=== PATIENT | female | born 1960 | race Caucasian/White ===

== ENCOUNTER 2018-07-06 01:06 | Observation (INO) | payer BC ==
[2018-07-06] MEDS ORDERED: 0.9 % SODIUM CHLORIDE 1000ML 1,000 ML IV SCH (01:30)
[2018-07-06] MEDS ORDERED: ONDANSETRON HCL IV 4 MG/2 ML VIAL IVP ONE (01:31)
[2018-07-06] MEDS ORDERED: HYDROMORPHONE HCL 2 MG/ML VIAL IVP ONE ×2 (01:31→02:22)
[2018-07-06 01:33] LABS: HEMATOCRIT 37.4 % (35.0-47.0); HEMOGLOBIN 12.2 gm/dl (11.6-16.0); MEAN CELL VOLUME 85.6 fl (81-97); MEAN CORPUSCULAR HEMOGLOBIN 27.9 pg (27-33); MEAN CORPUSCULAR HGB CONC 32.6 g/dl (32-36); PLATELET COUNT 284 K/uL (130-400); RED BLOOD COUNT 4.37 M/uL (3.80-5.40); WHITE BLOOD COUNT W/O DIFF 7.3 K/uL (4.2-12.2)
--- NOTE | 2018-07-06 01:37 | Emergency Department Record ---
History of Present Illness - General Chief Complaint: Abdominal Pain Stated Complaint: LEFT SIDE ABD PAIN Time Seen by Provider: 07/06/18 01:08 Source: Patient Mode of Arrival: Ambulatory Limitations: No limitations - History of Present Illness Initial Comments: 58 yo female presents to ED for evaluation of LLQ abdominal pain that began approximately 20 hours ago. Patient reports undergoing EGD/Colonoscopy 36 hours ago. Patient denies nausea, vomiting, or change in stools. Patient denies fevers, chills, or recent illness. Patient denies health problems other than DM. MD Complaint: Abdominal pain Onset/Timin -: Hour(s) Location: LUQ, LLQ Migration to: No migration Severity: Severe Severity scale (1-10): 8 Quality: Sharp, Stabbing Consistency: Constant Improves With: Nothing Worsens With: Movement Associated Symptoms: Denies other symptoms - Related Data Patient : No Home Medications Medication Instructions Recorded Confirmed Last Taken Acetaminop W/ Codeine 300/30Mg 2 tab PO QHS 07/06/18 07/06/18 07/05/18 [Tylenol #3] Aspirin 81 mg PO DAILY 07/06/18 07/06/18 Unknown Atorvastatin Calcium [Lipitor] 20 mg PO QPM 07/06/18 07/06/18 Unknown Brimonidine Tartrate [Alphagan P] 1 drop OPTH TID 07/06/18 07/06/18 Unknown Cholecalciferol (Vitamin D3) 2,000 unit PO DAILY 07/06/18 07/06/18 Unknown [Vitamin D3] Dicyclomine HCl 10 mg PO BID 07/06/18 07/06/18 Unknown Insulin Aspart [Novolog Flexpen] 1 unit SQ ASDIR PRN 07/06/18 07/06/18 Unknown Insulin Degludec [Tresiba 42 units SQ DAILY 07/06/18 07/06/18 Unknown Flextouch U-200] Latanoprost 0.005% Opth Elena 1 drop OPTH QHS 07/06/18 07/06/18 Unknown [Xalatan] Latanoprost 0.005% Opth Elena 1 drop OPTH QHS 07/06/18 07/06/18 Unknown [Xalatan] Levothyroxine Sodium [Synthroid] 125 mcg PO DAILY 07/06/18 07/06/18 Unknown Omeprazole [Prilosec] 20 mg PO BID 07/06/18 07/06/18 Unknown Timolol Maleate 0.5% 5Ml Btl 1 drop OPTH DAILY 07/06/18 07/06/18 Unknown [Timoptic] Allergies Allergy/AdvReac Type Severity Reaction Status Date / Time morphine Allergy HIVES Verified 07/06/18 01:13 Penicillins Allergy ITCHING Verified 07/06/18 01:13 Sulfa (Sulfonamide Allergy SWELLING Verified 07/06/18 01:13 Antibiotics) OF THE FACE Review of Systems Constitutional: Denies: Chills, Fever, Malaise, Night sweats Eyes: Denies: Eye discharge, Eye pain ENT: Denies: Congestion, Ear pain, Epistaxis Respiratory: Denies: Cough, Dyspnea Cardiovascular: Denies: Chest pain, Dyspnea on exertion Endocrine: Denies: Fatigue, Heat or cold intolerance Gastrointestinal: Reports: Abdominal pain. Denies: Nausea, Vomiting Genitourinary: Denies: Incontinence, Retention Musculoskeletal: Denies: Arthralgia, Back pain Skin: Denies: Bruising, Change in color Neurological: Denies: Abnormal gait, Confusion, Headache, Seizure Psychiatric: Denies: Anxiety Hematological/Lymphatic: Denies: Anemia, Blood Clots Physical Exam - General General Appearance: Alert, Oriented x3, Cooperative, Moderate distress Limitations: No limitations - Head Head exam: Atraumatic, Normocephalic, Normal inspection Head exam detail: negative: Abrasion, Contusion, Mtz's sign, General tenderness, Hematoma, Laceration - Eye Eye exam: Normal appearance. negative: Conjunctival injection, Periorbital swelling, Periorbital tenderness, Scleral icterus - ENT Ear exam: negative: Auricular hematoma, Auricular trauma Nasal Exam: negative: Active bleeding, Discharge, Dried blood, Foreign body Mouth exam: negative: Drooling, Laceration, Muffled voice, Tongue elevation - Neck Neck exam: Normal inspection. negative: Meningismus, Tenderness - Respiratory Respiratory exam: Normal lung sounds bilaterally. negative: Rales, Respiratory distress, Rhonchi, Stridor - Cardiovascular Cardiovascular Exam: Regular rate, Normal rhythm, Normal heart sounds - GI/Abdominal GI/Abdominal exam: Soft, Tenderness (TTP LUQ>LLQ, no rebound present, guarding is present.). negative: Rebound, Rigid - Rectal Rectal exam: Deferred - exam: Deferred - Extremities Extremities exam: Normal inspection. negative: Calf tenderness, Pedal edema, Tenderness - Back Back exam: Denies: CVA tenderness (R), CVA tenderness (L) - Neurological Neurological exam: Alert, Normal gait, Oriented X3 - Psychiatric Psychiatric exam: Normal affect, Normal mood - Skin Skin exam: Normal color. negative: Abrasion Type of lesion: negative: abrasion Course Vital Signs 07/06/18 01:15 Temperature 98.3 F Pulse Rate [ 82 Pulse Ox Probe] Respiratory 18 Rate Blood Pressure 166/80 [Left Arm] Pulse Ox 100 - Reevaluation(s) Reevaluation #1: 07/06/18 01:54 Laboratory studies were reviewed: WBC 7.3 CO2 20 AG 18 BUN/Creatinine 25/1.1 Labs are otherwise grossly unremarkable for an acute process. Reevaluation #2: 07/06/18 02:23 Patient has returned from CT imaging, reports mild improvement in her pain symptoms. Repeat Dilaudid ordered as well. Reevaluation #3: 07/06/18 03:41 CT Abdomen and Pelvis: No acute process Reevaluation #4: 07/06/18 06:46 Case was discussed with Dr. Cornelius, will accept admission at this time. Medical Decision Making - Lab Data Result diagrams: 07/06/18 01:25 07/06/18 01:25 Disposition Disposition: Admit Clinical Impression: Abdominal pain Qualifiers: Abdominal location: left lower quadrant Qualified Code(s): R10.32 - Left lower quadrant pain Disposition: Still a Patient at [facility] Decision to Admit: Admit from ER Decision to Admit Date: 07/06/18 Decision to Admit Time: 03:45 Condition: (2) Stable Time of Disposition: 03:45 Quality - Quality Measures Quality Measures: N/A - Blood Pressure Screening Does Patient Have Any of the Following: No Blood Pressure Classification: Pre-Hypertensive BP Reading Systolic Measurement: 131 Diastolic Measurement: 72 Screening for High Blood Pressure: < Pre-Hypertensive BP, F/U Documented > [ [id number]] Pre-Hypertensive Follow-up Interventions: Referral to alternative/primary care provider.
[2018-07-06 01:46] LABS: BILIRUBIN,TOTAL 0.2 mg/dL (0.2-1.0); CREATININE 1.1 mg/dL (0.5-0.9)
[2018-07-06 01:52] LABS: ALB/GLOB RATIO 1.4 (1.1-1.8); ALBUMIN 4.1 g/dL (4.0-5.0)
[2018-07-06 02:36] LABS: URINE APPEARANCE CLEAR; URINE BILIRUBIN NEGATIVE (NEGATIVE); URINE BLOOD NEGATIVE (NEGATIVE); URINE COLOR YELLOW; URINE KETONE NEGATIVE (NEGATIVE); URINE LEUKOCYTE ESTERASE SMALL (NEGATIVE); URINE NITRITE NEGATIVE (NEGATIVE); URINE PROTEIN NEGATIVE (NEGATIVE); URINE UROBILINOGEN 0.2 E.U./dL (0.20 - 1.00)
[2018-07-06 02:38] LABS: URINE BACTERIA NONE SEEN; URINE EPITHELIAL CELLS 0 - 2 (FEW); URINE RBC 0 - 2 (NONE SEEN); URINE WBC 0 - 2 (0-2/hpf)
[2018-07-06] MEDS ORDERED: ACETAMINOPHEN 500 MG TABLET PO PRN (04:30)
[2018-07-06] MEDS ORDERED: 0.9 % SODIUM CHLORIDE 1000ML 1,000 ML IV PRN (04:30)
[2018-07-06] MEDS ORDERED: HYDROMORPHONE HCL 2 MG/ML VIAL IV PRN (04:30)
[2018-07-06] MEDS ORDERED: LEVOTHYROXINE SODIUM 125 MCG TABLET PO SCH (07:00)
[2018-07-06] MEDS ORDERED: DICYCLOMINE HCL 10 MG CAPSULE PO ONE (08:40)
[2018-07-06] MEDS ORDERED: DICYCLOMINE HCL 10 MG CAPSULE PO PRN (08:41)
[2018-07-06] MEDS ORDERED: MAGNESIUM HYDROXIDE/AL HYDROX 30 ML, LIDOCAINE VISC 2% 15ML 15 ML PO ONE ×2 (09:00)
[2018-07-06] MEDS ORDERED: PANTOPRAZOLE SODIUM 40 MG TABLET PO SCH (10:00)
[2018-07-06] MEDS ORDERED: DICYCLOMINE HCL 10 MG CAPSULE PO SCH (10:00)
[2018-07-06] MEDS ORDERED: TIMOLOL MALEATE 0.5% 5ML BTL OPTH SCH (10:00)
[2018-07-06] MEDS ORDERED: ASPIRIN 81 MG CHEWABLE TABLET PO SCH (10:00)
--- NOTE | 2018-07-06 11:23 | Discharge Note ---
VTE H&P Assessment - Risk for VTE Risk for VTE: No Risk Level: Very Low Risk Assessment Date: 07/06/18 Risk Assessment Time: 11:21 VTE Orders Placed or Will Be Placed: No VTE Reason for No Prophylaxis: Not Indicated (going home) Discharge Medications - Discharge Medications Prescriptions: Sucralfate [Carafate] 1 gm PO QID #40 tablet Home Medications: Ambulatory Orders Acetaminop W/ Codeine 300/30Mg [Tylenol with Codeine #3] 2 tab PO QHS 07/06/18 [ Last Taken 07/05/18] Aspirin 81 mg PO DAILY 07/06/18 [Last Taken Unknown] Atorvastatin Calcium [Lipitor] 20 mg PO QPM 07/06/18 [Last Taken Unknown] Brimonidine Tartrate [Alphagan P] 1 drop OPTH TID 07/06/18 [Last Taken Unknown] Cholecalciferol (Vitamin D3) [Vitamin D3] 2,000 unit PO DAILY 07/06/18 [Last Taken Unknown] Dicyclomine HCl 10 mg PO BID 07/06/18 [Last Taken Unknown] Insulin Aspart [Novolog Flexpen] 1 unit SQ ASDIR PRN 07/06/18 [Last Taken Unknown] Insulin Degludec [Tresiba Flextouch U-200] 42 units SQ DAILY 07/06/18 [Last Taken Unknown] Latanoprost 0.005% Opth Elena [Xalatan] 1 drop OPTH QHS 07/06/18 [Last Taken Unknown] Latanoprost 0.005% Opth Elena [Xalatan] 1 drop OPTH QHS 07/06/18 [Last Taken Unknown] Levothyroxine Sodium [Synthroid] 125 mcg PO DAILY 07/06/18 [Last Taken Unknown] Omeprazole [Prilosec] 20 mg PO BID 07/06/18 [Last Taken Unknown] Sucralfate [Carafate] 1 gm PO QID #40 tablet 07/06/18 [Last Taken Unknown] Timolol Maleate 0.5% 5Ml Btl [Timoptic] 1 drop OPTH DAILY 07/06/18 [Last Taken Unknown] Discharge Note - Date Date of Discharge Note: 07/06/18 Condition: (2) Stable Forms: Patient Portal Access
--- NOTE | 2018-07-06 11:28 | Discharge Note ---
VTE H&P Assessment - Risk for VTE Risk for VTE: No Risk Level: Very Low Risk Assessment Date: 07/06/18 Risk Assessment Time: 11:21 VTE Orders Placed or Will Be Placed: No VTE Reason for No Prophylaxis: Not Indicated (going home) Discharge Medications - Discharge Medications Prescriptions: Omeprazole [Prilosec] 20 mg PO BID #60 cap. Sucralfate [Carafate] 1 gm PO QID #40 tablet Home Medications: Ambulatory Orders Acetaminop W/ Codeine 300/30Mg [Tylenol with Codeine #3] 2 tab PO QHS 07/06/18 [ Last Taken 07/05/18] Aspirin 81 mg PO DAILY 07/06/18 [Last Taken Unknown] Atorvastatin Calcium [Lipitor] 20 mg PO QPM 07/06/18 [Last Taken Unknown] Brimonidine Tartrate [Alphagan P] 1 drop OPTH TID 07/06/18 [Last Taken Unknown] Cholecalciferol (Vitamin D3) [Vitamin D3] 2,000 unit PO DAILY 07/06/18 [Last Taken Unknown] Dicyclomine HCl 10 mg PO BID 07/06/18 [Last Taken Unknown] Insulin Aspart [Novolog Flexpen] 1 unit SQ ASDIR PRN 07/06/18 [Last Taken Unknown] Insulin Degludec [Tresiba Flextouch U-200] 42 units SQ DAILY 07/06/18 [Last Taken Unknown] Latanoprost 0.005% Opth Elena [Xalatan] 1 drop OPTH QHS 07/06/18 [Last Taken Unknown] Latanoprost 0.005% Opth Elena [Xalatan] 1 drop OPTH QHS 07/06/18 [Last Taken Unknown] Levothyroxine Sodium [Synthroid] 125 mcg PO DAILY 07/06/18 [Last Taken Unknown] Omeprazole [Prilosec] 20 mg PO BID 07/06/18 [Last Taken Unknown] Omeprazole [Prilosec] 20 mg PO BID #60 cap 07/06/18 [Last Taken Unknown] Sucralfate [Carafate] 1 gm PO QID #40 tablet 07/06/18 [Last Taken Unknown] Timolol Maleate 0.5% 5Ml Btl [Timoptic] 1 drop OPTH DAILY 07/06/18 [Last Taken Unknown] Discharge Note - Date Date of Discharge Note: 07/06/18 Disposition: Home, Self-Care Condition: (2) Stable Additional Instructions: follow up with family in 5-7 days follow up with GI if any more problems Prescriptions: Sucralfate [Carafate] 1 gm PO QID #40 tablet Forms: Patient Portal Access Activity at Discharge: Increase Activity as Tolerated Diet at Discharge: Advance to Usual Diet Reason If No Overlap Therapy Ordered for DC: Treatment Not Tolerated Reason for No ASA at DC: Treatment Not Tolerated Reason for Not Ordering Antithrombotic at DC: Contraindicated Reason for Not Ordering Anticoagulation Therapy at DC: Not Indicated Patient Refusal of Anticoagulation Therapy at DC: Drug Declined Reason for Not Ordering Statin at DC: Treatment Not Tolerated Patient Refusal of Statin Therapy at DC: Drug Declined Reason for Not Ordering PT Eval/Treat: Not Indicated
--- NOTE | 2018-07-06 11:36 | Discharge Note ---
VTE H&P Assessment - Risk for VTE Risk for VTE: No Risk Level: Very Low Risk Assessment Date: 07/06/18 Risk Assessment Time: 11:21 VTE Orders Placed or Will Be Placed: No VTE Reason for No Prophylaxis: Not Indicated (going home) Discharge Medications - Discharge Medications Prescriptions: Omeprazole [Prilosec] 20 mg PO BID #60 Sucralfate [Carafate] 1 gm PO QID #40 tablet Home Medications: Ambulatory Orders Acetaminop W/ Codeine 300/30Mg [Tylenol with Codeine #3] 2 tab PO QHS 07/06/18 [ Last Taken 07/05/18] Aspirin 81 mg PO DAILY 07/06/18 [Last Taken Unknown] Atorvastatin Calcium [Lipitor] 20 mg PO QPM 07/06/18 [Last Taken Unknown] Brimonidine Tartrate [Alphagan P] 1 drop OPTH TID 07/06/18 [Last Taken Unknown] Cholecalciferol (Vitamin D3) [Vitamin D3] 2,000 unit PO DAILY 07/06/18 [Last Taken Unknown] Dicyclomine HCl 10 mg PO BID 07/06/18 [Last Taken Unknown] Dicyclomine HCl [Bentyl] 10 mg PO Q8H #20 cap 07/06/18 [Last Taken Unknown] Insulin Aspart [Novolog Flexpen] 1 unit SQ ASDIR PRN 07/06/18 [Last Taken Unknown] Insulin Degludec [Tresiba Flextouch U-200] 42 units SQ DAILY 07/06/18 [Last Taken Unknown] Latanoprost 0.005% Opth Elena [Xalatan] 1 drop OPTH QHS 07/06/18 [Last Taken Unknown] Latanoprost 0.005% Opth Elena [Xalatan] 1 drop OPTH QHS 07/06/18 [Last Taken Unknown] Levothyroxine Sodium [Synthroid] 125 mcg PO DAILY 07/06/18 [Last Taken Unknown] Omeprazole [Prilosec] 20 mg PO BID 07/06/18 [Last Taken Unknown] Omeprazole [Prilosec] 20 mg PO BID #60 07/06/18 [Last Taken Unknown] Sucralfate [Carafate] 1 gm PO QID #40 tablet 07/06/18 [Last Taken Unknown] Timolol Maleate 0.5% 5Ml Btl [Timoptic] 1 drop OPTH DAILY 07/06/18 [Last Taken Unknown] Discharge Note - Date Date of Discharge Note: 07/06/18 Disposition: Home, Self-Care Condition: (2) Stable Additional Instructions: follow up with family in 5-7 days follow up with GI if any more problems Prescriptions: Dicyclomine HCl [Bentyl] 10 mg PO Q8H #20 cap Omeprazole [Prilosec] 20 mg PO BID #60 cap. Sucralfate [Carafate] 1 gm PO QID #40 tablet Forms: Patient Portal Access Activity at Discharge: Increase Activity as Tolerated
[2018-07-06] MEDS ORDERED: NOVOLOG 100 UNIT/ML SC PRN (12:00)
--- NOTE | 2018-07-06 12:19 | CT SCAN REPORT ---
EXAM: CT OF THE ABDOMEN AND PELVIS WITH CONTRAST HISTORY: MID ABDOMINAL PAIN. TECHNIQUE: Sequential axial images were obtained from the diaphragms through the ischiorectal fossa after intravenous administration of 100 ml of Omnipaque 300 contrast material. FINDINGS: The visualized lung bases appear normal. The heart and pericardium appear normal. The liver appears homogeneous. The gallbladder, pancreas and spleen appear normal. The adrenal glands and kidneys appear normal. No CT findings suggestive of obstructive uropathy. The urinary bladder appears normal. The uterus and adnexal structures are normal. The small bowel appears normal. The colon appears normal. There is atherosclerotic change of the abdominal vasculature. IMPRESSION: NO ACUTE ABDOMINAL OR PELVIC DISEASE PROCESS IS APPRECIATED. JOB NUMBER: [id number] [facility]
[2018-07-06] MEDS ORDERED: SUCRALFATE 1 G/10 ML UD PO ONE (13:15)
[2018-07-06] MEDS ORDERED: LATANOPROST 0.005% OPTH SOLUTION 2.5ML BOTTLE OPTH SCH ×2 (22:00)
[2018-07-06] MEDS ORDERED: ATORVASTATIN 20 MG TABLET PO SCH (22:00)
[2018-07-06] MEDS ORDERED: BRIMONIDINE TARTRATE 0.1% OPTH SCH (22:00)
[2018-07-07] MEDS ORDERED: INSULIN DEGLUDEC SC SCH (10:00)
[2018-07-07] MEDS ORDERED: TIMOLOL MALEATE 0.5% OPTH SCH (10:00)
[2018-07-07] MEDS ORDERED: [UNRECOGNIZED DRUG - OTHER] SC SCH (10:00)
--- NOTE | 2018-07-11 09:20 | History and Physical Report ---
CHIEF COMPLAINT: Epigastric left upper quadrant pain and left lower quadrant pain more so than the left upper quadrant. HISTORY OF PRESENT ILLNESS: This 58-year-old female had an EGD with a polyp removal from her stomach and a colonoscopy done on Monday about 36 hours prior to arrival to the emergency department. Seen in the emergency department at 1 a.m., evaluated by Dr. Gordon, admitted to the hospital for pain control and further evaluation. CT scan of the abdomen was negative. Labs are unremarkable. PAST SURGICAL HISTORY: Cyst removed from the ovary many years ago, appendectomy as a child, right shoulder surgery, cataract removal. PAST MEDICAL HISTORY: Hypercholesterolemia, glaucoma, GERD, diabetes type 2 insulin dependent, hypothyroidism, low back pain. MEDICATIONS: 1. Tylenol with codeine q.h.s. 2. Levothyroxine 125 mcg daily. 3. Bentyl 10 mg b.i.d. 4. Aspirin 81 mg daily. 5. D3 2000 units daily. 6. Timolol maleate 1 drop daily. 7. Xalatan 1 drop at h.s. 8. Alphagan P 1 drop t.i.d. 9. Insulin Tresiba 43 units daily in the morning. 10. NovoLog 1 unit as directed by scale before meals. 11. Omeprazole 20 mg b.i.d. 12. Lipitor 20 mg q.p.m. ALLERGIES: MORPHINE, PENICILLIN, SULFA. FAMILY/PSYCHOSOCIAL HISTORY: Former smoker, stopped more than a year ago, quit in 2004. Father, mother, brother, and sister had cancer. Diabetes in the grandparents, heart disease in the grandparents. Mother and father hypertension. REVIEW OF SYSTEMS: HEENT: No upper respiratory infection symptoms, cough, cold, or congestion. Cardiovascular: No chest pain, palpitations, or arrhythmia. Respiratory: No cough, cold, or congestion. Gastrointestinal: See Chief Complaint. She has abdominal pain epigastric and left upper quadrant and some left lower quadrant pain. She has pain. No rebound or rigidity but she does have some guarding on palpation in the left upper quadrant. Genitourinary: No dysuria, hematuria, frequency, or burning on urination. Musculoskeletal: She has diffuse arthritis mostly in her low back. Neurological: No CVA, paralysis, or paresthesias. Endocrine: Diabetes type 2, hypothyroidism, and overweight. Integument: No rash, ulcers, change in moles, or yellow skin. PHYSICAL EXAMINATION: VITALS: Height 5 feet 4 inches, weight 170 pounds. Temperature 97.7, pulse 92, blood pressure 131/72, respiratory rate 17, pulse ox 100% on room air, weight 170 pounds. HEENT: Pupils are equal, round, and reactive to light and accommodation. Extraocular muscles are intact. Throat is clear. Nose is clear. Tympanic membranes are xiong. NECK: Supple. No jugular venous distention. No hepatojugular reflux. No carotid bruits. Thyroid is smooth. CARDIOVASCULAR: Regular rate and rhythm without murmurs, clicks, rubs, or gallops. RESPIRATORY: Clear to auscultation and percussion. ABDOMEN: Pain in the epigastric and left upper quadrant mostly. Some left lower quadrant. No rebound, no rigidity. Bowel sounds are present. EXTREMITIES: No pitting edema. No cyanosis, no clubbing. Full range of motion. Peripheral pulses are good. BREASTS: Exam deferred. GYNECOLOGICAL: Exam deferred. RECTAL: Exam deferred. NEUROLOGIC: Cranial nerves II-XII intact. No gross defects. Sensation normal, strength normal. Deep tendon reflexes equal bilaterally with Babinski negative. MENTAL STATUS: Alert and oriented x3. IMPRESSION: 1. Epigastric and left upper quadrant abdominal pain. 2. Post EGD 36 hours ago with a polyp removed from her stomach. 3. Post colonoscopy 36 hours ago, benign findings per the patient. The endoscopist is Dr. Sweet through [facility] done at [facility]. 4. Diabetes mellitus type 2. 5. Hypothyroidism. 6. Glaucoma. 7. Hypercholesterolemia. PLAN: Pain control. We will try GI cocktail. We will also try Bentyl and Tylenol. She had Dilaudid during the night and tolerated that. She came in at 1 a.m. We will contact Dr. Sweet with [facility] to discuss the case. [facility]
--- NOTE | 2018-07-11 09:20 | Discharge Summary ---
DISCHARGE DIAGNOSES: 1. Acute gastritis. 2. Abdominal pain, epigastric and left upper quadrant. 3. Post EGD and colonoscopy 30 hours prior. ATTENDING PHYSICIAN: Giovanny Cornelius DO REASON FOR HOSPITALIZATION: Abdominal pain post EGD/colonoscopy and pain control. The patient was seen in the emergency department at [address] Gordon, admitted to the hospital for pain control and further evaluation. SIGNIFICANT FINDINGS: CT scan of the abdomen was normal. No signs of perforation or free air or any other injuries. Laboratory is unremarkable. THERAPY PROVIDED: She was given pain medication. I gave her GI cocktail today. It took the pain almost completely away. I started her on Carafate and will continue the omeprazole which she is already taking twice a day. I will give her some pain medication of Bentyl 3 times a day. HOSPITAL COURSE: Unremarkable. CONDITION ON DISCHARGE: Much improved. DISCHARGE INSTRUCTIONS: Follow up with family doctor next week. Follow up with GI if having more problems. Advanced diet as tolerated. Carafate 1 g 4 times a day before meals and at bedtime. Bentyl 20 mg p.r.n. pain. Tylenol also for pain. [facility]
== END 2018-07-06 13:45 | disposition home or self-care (01) ==
LOC: ER 01:06 → MEDSURG 04:07
PROVIDERS: ADMIT Emergency Medicine; ATTEND Emergency Medicine
DX: R10.32 Left lower quadrant pain (principal); Z98.890 Other specified postprocedural states; E78.00 Pure hypercholesterolemia, unspecified; E11.9 Type 2 diabetes mellitus without complications; H40.9 Unspecified glaucoma; K21.9 Gastro-esophageal reflux disease without esophagitis; Z87.891 Personal history of nicotine dependence; E03.9 Hypothyroidism, unspecified
CPT/HCPCS: 83690; 80053; 36416; 81001; 82948; 85027; 74177; 90686; G0378; Q9967; J2405; J1170; 96374; 96375; 99220; 99285; J7030

== ENCOUNTER 2018-12-29 10:18 | Emergency (ER) | payer BC ==
--- NOTE | 2018-12-29 10:30 | Emergency Department Record ---
History of Present Illness - General Chief Complaint: Cough Stated Complaint: COUGH,SORE THROAT,CONGESTION Time Seen by Provider: 12/29/18 10:20 Source: Patient Mode of Arrival: Ambulatory Limitations: No limitations - History of Present Illness Initial Comments: 58 yo female presents with cough and congestion with mild sore throat for one day. She has been around her who has similar symptoms for the last week. No sputum. No NVD. No shortness of breath. It does hurt to cough. No underlying lung disease. MD Complaint: Cough, Nasal congestion, Sore throat -: Days(s) (1) Severity: Moderate Quality: Aching Consistency: Constant Improves With: Nothing Worsens With: Nothing Context: Sick contacts Associated Symptoms: Cough Treatments Prior to Arrival: None - Related Data Previous Rx's Medication Instructions Recorded Dicyclomine HCl [Bentyl] 10 mg PO Q8H #20 cap 07/06/18 Omeprazole [Prilosec] 20 mg PO BID #60 cap.dr 07/06/18 Sucralfate [Carafate] 1 gm PO QID #40 tablet 07/06/18 Azithromycin [Zithromax] 250 mg PO DAILY #6 tab 12/29/18 Allergies Allergy/AdvReac Type Severity Reaction Status Date / Time morphine Allergy HIVES Verified 12/29/18 10:27 Penicillins Allergy ITCHING Verified 12/29/18 10:27 Sulfa (Sulfonamide Allergy SWELLING Verified 12/29/18 10:27 Antibiotics) OF THE FACE Review of Systems Constitutional: Reports: Malaise. Denies: Chills, Fever Eyes: Reports: Eye discharge ENT: Reports: Congestion, Throat pain. Denies: Ear pain Respiratory: Reports: Cough. Denies: Dyspnea, Hemoptysis, Stridor, Wheezes Cardiovascular: Denies: Chest pain, Palpitations, Syncope Endocrine: Denies: Fatigue, Polydipsia, Polyuria Gastrointestinal: Denies: Abdominal pain, Diarrhea, Nausea, Vomiting Genitourinary: Denies: Dysuria, Urgency Musculoskeletal: Denies: Arthralgia, Back pain, Myalgia Skin: Denies: Bruising, Change in color, Rash Neurological: Denies: Headache Psychiatric: Denies: Anxiety Hematological/Lymphatic: Denies: Blood Clots, Easy bleeding, Easy bruising, Swollen glands Past Medical History - SOCIAL HISTORY Smoking Status: Former smoker Drug Use: None - RESPIRATORY Hx Respiratory Disorders: No - CARDIOVASCULAR Hx Cardio Disorders: Yes Comment:: High cholesterol - NEURO Hx Neuro Disorders: Yes Comment:: Glaucoma - GI Hx GI Disorders: Yes Hx Reflux: Yes Hx of Polyps: Yes (06/2016 polyp removed) - Hx Genitourinary Disorders: No - ENDOCRINE Hx Endocrine Disorders: Yes Hx Diabetes: Yes (IDDM) Hx Thyroid Disease: Yes - MUSCULOSKELETAL Hx Musculoskeletal Disorders: Yes Hx Back Injury: Yes - PSYCH Hx Psych Problems: No - HEMATOLOGY/ONCOLOGY Hx Hematology/Oncology Disorders: No Family Medical History Hx Cancer: Father, Mother, Brother/Sister Hx Diabetes: Grandparents Hx Heart Disease: Grandparents Hx HTN: Father, Mother Physical Exam - General General Appearance: Alert, Oriented x3, Cooperative, No acute distress, Other ( Well appearing) Limitations: No limitations - Head Head exam: Atraumatic, Normal inspection - Eye Eye exam: Normal appearance, PERRL. negative: Conjunctival injection, Periorbital swelling, Scleral icterus - ENT ENT exam: Normal exam, Mucous membranes moist, Normal orophraynx Ear exam: Normal external inspection Nasal Exam: Normal inspection. negative: Discharge Mouth exam: Normal external inspection Teeth exam: Normal inspection Throat exam: Normal inspection, Other (Normal inspection). negative: Tonsillar erythema, Tonsillomegaly, Tonsillar exudate, R peritonsillar mass, L peritonsillar mass - Neck Neck exam: Normal inspection. negative: Lymphadenopathy, Tenderness - Respiratory Respiratory exam: Normal lung sounds bilaterally, Other (Clear lungs). negative : Accessory muscle use, Decreased breath sounds, Prolonged expiratory, Respiratory distress, Rhonchi, Stridor, Wheezes - Cardiovascular Cardiovascular Exam: Regular rate, Normal rhythm, Normal heart sounds - GI/Abdominal GI/Abdominal exam: Soft. negative: Distended, Guarding, Tenderness - Rectal Rectal exam: Deferred - exam: Deferred - Extremities Extremities exam: Normal inspection. negative: Pedal edema, Tenderness - Back Back exam: Denies: CVA tenderness (R), CVA tenderness (L) - Neurological Neurological exam: Alert, Normal gait, Oriented X3. negative: Abnormal gait - Psychiatric Psychiatric exam: Normal affect, Normal mood - Skin Skin exam: Dry, Intact, Normal color, Warm Disposition Disposition: Discharge Clinical Impression: Bronchitis Disposition: Home, Self-Care Condition: (1) Good Instructions: Acute Bronchitis (ED) Additional Instructions: Call your doctor for follow up this week if not improving Take the prescriptions as directed Return if worse, fevers, short of breath Prescriptions: Azithromycin [Zithromax] 250 mg PO DAILY #6 tab Forms: Patient Portal Access Time of Disposition: 10:52 Quality - Quality Measures Quality Measures: N/A - Blood Pressure Screening Does Patient Have Any of the Following: Active Dx of HTN Blood Pressure Classification: Pre-Hypertensive BP Reading Systolic Measurement: 138 Diastolic Measurement: 67 Screening for High Blood Pressure: Patient Exclusion, Hx of HTN [G9744]
[2018-12-29 10:48] LABS: INFLUENZA A NEGATIVE (NEGATIVE); INFLUENZA B NEGATIVE (NEGATIVE)
== END 2018-12-29 11:02 | disposition home or self-care (01) ==
LOC: ER 10:18
DX: J20.9 Acute bronchitis, unspecified (principal); Z87.891 Personal history of nicotine dependence
CPT/HCPCS: 87400; 99282; 99283